=== PATIENT | female | born 1955 | race Caucasian/White ===

== ENCOUNTER 2018-04-18 08:52 | Inpatient (IN) | payer BC ==
[2018-04-11 12:01] VITALS: BMI 31.9
--- NOTE | 2018-04-18 07:24 | HP ---
Admitting History and Physical - Admission Chief Complaint: left knee osteoarthritis x years History of Present Illness: 62-year-old female presenting in regard to her left knee. Long-standing history of left knee osteoarthritis. Patient complains of pain, limited range of motion , difficulty ambulating, and difficulty with activities of daily living. Patient has failed conservative treatment measures including PO medications, activity modification, injections, and exercise programs. At this point, patient would like to proceed with surgical intervention-left total knee arthroplasty MAKOplasty. History Source: Patient - Past Medical History Cardiovascular: Yes: Hyperlipdemia Psych: Yes: Depression Musculoskeletal: Yes: Osteoarthritis - Past Surgical History Additional Past Surgical History: See written history and physical. - Smoking History Smoking history: Never smoked - Alcohol/Substance Use Hx Alcohol Use: Yes (RARELY) Home Medications - Allergies Allergies/Adverse Reactions: Allergies Allergy/AdvReac Type Severity Reaction Status Date / Time No Known Allergies Allergy Verified 04/07/18 10:58 - Home Medications Home Medications: Ambulatory Orders Bupropion HCl [Wellbutrin Xl -] 150 mg PO DAILY 04/07/18 Celecoxib [Celebrex] 200 mg PO DAILY 04/07/18 Fenofibrate Nanocrystallized [Fenofibrate] 145 mg PO DAILY 04/07/18 Sertraline HCl 100 mg PO BID 04/07/18 traZODone HCL [Trazodone HCl] 100 mg PO BID 04/07/18 Review of Systems - Review of Systems Musculoskeletal: reports: Crepitus (left knee), Decreased ROM (left knee), Joint Pain (left knee), Joint Swelling (left knee) Physical Examination Constitutional: Yes: Well Nourished, No Distress Eyes: Yes: Conjunctiva Clear HENT: Yes: Atraumatic, Normocephalic Neck: Yes: Supple Cardiovascular: Yes: Regular Rate and Rhythm Respiratory: Yes: Regular Gastrointestinal: Yes: Soft ...Rectal Exam: Yes: Deferred Musculoskeletal: Yes: Joint Stiffness (left knee), Joint Swelling (left knee) Assessment/Plan 62-year-old female presenting in regard to her left knee. Long-standing history of left knee osteoarthritis. Patient complains of pain, limited range of motion , difficulty ambulating, and difficulty with activities of daily living. Patient has failed conservative treatment measures including PO medications, activity modification, injections, and exercise programs. At this point, patient would like to proceed with surgical intervention-left total knee arthroplasty MAKOplasty. Pros, cons, risks, benefits, and alternatives of a left total knee arthroplasty were discussed with the patient at length. Patient confirms your understanding, and consent to proceed with a left total knee arthroplasty MAKOplasty.
[~2018-04-18 08:52] MED LIST: CEFAZOLIN 2 GM in DEXTROSE 5%-WATER - 50 ML IVPB ONE; CELECOXIB 200 MG CAPSULE PO ONE; GABAPENTIN 300 MG CAPSULE (FP) PO ONE; PANTOPRAZOLE 40 MG TABLET (FP) PO ONE; ROPIVICAINE 0.2%/MORPH PF/KETOROLAC - 51ML DISP.SYRINGE IA ONE; TRANEXAMIC ACID 1000 MG/10 ML VIAL IVPUSH ONE; oxyCODONE HCL 10 MG SUSTAINED ACTING TABLET PO ONE
[2018-04-18] MEDS ORDERED: MIDAZOLAM HCL 2 MG/2 ML SINGLE DOSE VIAL ONE ×2 (11:00→12:42)
[2018-04-18] MEDS ORDERED: BUPIVACAINE LIPOSOME/PF (EXPAREL) 266 MG/20 ML VIAL ONE ×2 (11:00→11:09)
[2018-04-18] MEDS ORDERED: ceFAZolin SODIUM 1 GM VIAL ONE ×2 (12:26→12:56)
[2018-04-18] MEDS ORDERED: TRANEXAMIC ACID 1000 MG/10 ML VIAL ONE ×2 (12:26→12:56)
[2018-04-18] MEDS ORDERED: VANCOMYCIN 1,000 MG VIAL (RESTRICTED TO ID ONLY) ONE (12:26)
[2018-04-18] MEDS ORDERED: ROPIVICAINE 0.2%/MORPH PF/KETOROLAC - 51ML DISP.SYRINGE IA ONE ×2 (12:29→13:41)
[2018-04-18] MEDS ORDERED: PROPOFOL 20 ML ONE ×5 (12:40→13:51)
[2018-04-18] MEDS ORDERED: SUCCINYLCHOLINE CHLORIDE 200 MG/10 ML VIAL ONE (12:40)
[2018-04-18] MEDS ORDERED: ONDANSETRON 4 MG/2 ML VIAL IVPUSH PRN (14:52)
[2018-04-18] MEDS ORDERED: oxyCODONE HCL 5 MG TABLET PO PRN (14:53)
[2018-04-18] MEDS ORDERED: KETOROLAC TROMETHAMINE 30 MG/1 ML VIAL IVPUSH ONE (16:18)
[2018-04-18] MEDS ORDERED: ACETAMINOPHEN 1000 MG/100 ML VIAL (NON FORMULARY) IVPB ONE ×2 (16:20→16:26)
[2018-04-18] MEDS ORDERED: KETOROLAC TROMETHAMINE 30 MG/1 ML VIAL ONE (16:24)
[2018-04-18] MEDS ORDERED: traMADol HCL 50 MG TABLET ONE (16:24)
[2018-04-18] MEDS ORDERED: ACETAMINOPHEN INJECTION 100 ML IVPB ONE (16:24)
[2018-04-18] MEDS ORDERED: traMADol HCL 50 MG TABLET PO ONE (16:25)
[2018-04-18] MEDS ORDERED: MAG HYDROX/AL HYDROX/SIMETH 30 ML UNIT-DOSE CUP PO PRN (16:47)
[2018-04-18] MEDS ORDERED: MAGNESIUM HYDROX 2400MG/30ML ORAL SUSPENSION 30 ML CUP PO PRN (16:47)
[2018-04-18] MEDS ORDERED: ONDANSETRON 4 MG/2 ML VIAL ONE (16:50)
[2018-04-18] MEDS ORDERED: ONDANSETRON 4 MG/2 ML VIAL IVPUSH ONE (16:50)
[2018-04-18] MEDS ORDERED: LACTATED RINGERS SOLUTION 1,000 ML IV SCH (17:00)
--- NOTE | 2018-04-18 17:31 | OP ---
Operative Note - Note: Operative Date: 04/18/18 Pre-Operative Diagnosis: Left knee OA Operation: Left QING TKA Post-Operative Diagnosis: Same as Pre-op Surgeon: Anthony Hernández Gold Nib Grinder: Vidhya Ya Anesthesia: Spinal Estimated Blood Loss (mls): 150
[2018-04-18] MEDS ORDERED: ceFAZolin SODIUM 1 GM VIAL IVPB ONE (17:32)
[2018-04-18] MEDS ORDERED: traZODone HCL 50 MG TABLET (FP) ONE (21:14)
[2018-04-18] MEDS: ASCORBIC ACID 500 MG TABLET (FP) PO SCH (21:42)
[2018-04-18] MEDS: GABAPENTIN 300 MG CAPSULE (FP) PO SCH (21:42)
[2018-04-18] MEDS: SERTRALINE HCL 50 MG TABLET (FP) PO SCH (21:43)
[2018-04-18] MEDS: CELECOXIB 200 MG CAPSULE PO SCH (21:43)
[2018-04-18] MEDS: traMADol HCL 50 MG TABLET PO SCH (21:44)
[2018-04-18] MEDS: ACETAMINOPHEN 325 MG TABLET (FP) PO SCH (21:45)
[2018-04-18] MEDS: KETOROLAC TROMETHAMINE 30 MG/1 ML VIAL IVPUSH SCH (21:45)
[2018-04-18] MEDS: traZODone HCL 100 MG TABLET (FP) PO SCH (21:47)
[2018-04-18] MEDS: SENNOSIDES/DOCUSATE COMBO (SENNA PLUS) TABLET (UD) PO SCH (21:48)
--- NOTE | 2018-04-18 21:58 | SPEC ---
DATE OF OPERATION: 04/18/2018 PREOPERATIVE DIAGNOSIS: Left knee osteoarthritis. POSTOPERATIVE DIAGNOSIS: Left knee osteoarthritis. PROCEDURE: Left total knee replacement with MAKOplasty robotic navigation. ATTENDING: David Osorio MD UNIT CLERK: KULWANT Hester ANESTHESIA: Spinal plus sedation. ESTIMATED BLOOD LOSS: 150 mL COMPLICATIONS: None. DISPOSITION: The patient was transferred to the PACU in stable condition. IMPLANTS USED: Raymond Triathlon size 4 femoral component, Charmaine Triathlon size 3 tibial component with 50-mm tibial stem, 16-mm total-stabilized polyethylene component, 32-mm patellar component. INDICATIONS: This is a 62-year-old female who presented to the office complaining of severe left knee pain. She was seen and examined by Dr. Osorio and diagnosed with severe left knee osteoarthritis. The patient was initially treated non-operatively with injections, medications, and physical therapy, but continued to have severe pain and ambulatory dysfunction. She was, therefore, indicated for a left total knee replacement. The risks, benefits, and alternatives to the procedure were explained to the patient in great detail, and she elected to proceed with the surgery. On the day of surgery, the patient was taken to the operating room and placed on the OR table. Spinal anesthesia was administered by the anesthesiologist. The patient was then positioned supine on the table and all bony prominences were padded. The knee was then prepped and draped in the usual sterile fashion and intravenous antibiotics were given for infection prophylaxis. A surgical time-out was then performed with the team, and the patients identity, procedure, side, availability of implants, and the administration of antibiotics was confirmed. With the knee flexed, a midline incision was made and carried down through the subcutaneous fat to the underlying retinaculum. A medial parapatellar arthrotomy was performed. This was followed by a subperiosteal dissection of the tissue off the proximal, medial tibia. A portion of fat pad was removed from under the patellar tendon, and a small portion of fat was excised off the distal supracondylar femur. Electrocautery and an Aquamantys bipolar sealing device were used to achieve hemostasis. The knee was then flexed further and the anterior horn of the lateral meniscus was released from the midline. Next, the anterior and posterior cruciate ligaments were transected. Grade 4 changes were noted diffusely throughout the knee. Femoral and tibial checkpoints were then placed in the appropriate location using a mallet. Two parallel bicortical self-drilling pins were placed in the tibial diaphysis after making stab incisions and bluntly dissecting down to bone. Two pins were then placed in the distal supracondylar femur. The Figure 1 navigation arrays were then attached to both the femoral and tibial pins and the lower extremity was then registered to the robotic navigation device using various joint movements, as well as inputting several dozen reference points. The knee was then taken through a full range of motion with a corrective force applied. Alignment in varus/valgus as well as flexion/extension and soft tissue balance was measured in various positions. The navigation device showed a numerical and graphic representation of the soft tissue balance. The components were repositioned virtually using the software until optimal soft tissue balance was achieved on screen. Once this was accomplished, the final plan was saved and sent to the robot. Self-retaining retractors were then placed at the joint line for exposure and protection of the collateral ligaments. The robot was brought into the sterile field and registered with the navigation device. The robotic arm with attached oscillating saw blade was then used to perform femoral and tibial bone cuts as per the saved software plan. The femoral box cut was made using the appropriately sized manual cutting guide. The knee was then irrigated. Trial components were placed and the knee was taken through a full range of motion to assess soft tissue balance and alignment. The range of motion was found to be excellent and the soft tissue balance was optimal and according to plan. The knee was then put into extension and the patella everted. The synovium around the patella was circumscribed with electrocautery. A caliper was used to measure the patellar thickness and a saw was then used to resect the patella at the chondro-osseous junction. The cut surface was then sized and drilled for the appropriate patellar button, with care taken to medialize it. A trial patella was then placed and the knee was again taken through a full range of motion. The knee was found to have both good balance and good patellar tracking. All of the components were removed except the tibial base plate. The appropriate instrumentation was used to drill and punch the proximal tibia for the keel of the final component. All bony surfaces were then cleaned with pulsatile lavage and dried. Bone cement was then prepared on the back table, and final components were cemented in place in the usual fashion. Extruded cement was removed. The polyethylene trial was placed, the knee was put into extension, and axial pressure was applied for compression while the cement hardened. The patellar button was similarly cemented into place. Once the cement had hardened, the knee was taken through a full range of motion to assess stability, balance, and patellar tracking. This was found to be optimal and the trial polyethylene was exchanged for the appropriately sized real implant. The wound was then thoroughly irrigated with normal saline. A 3-minute dilute Betadine lavage was performed. The knee was again irrigated using a pulsatile lavage device. A periarticular injection was used to locally infiltrate the capsular tissues surrounding the implant and prosthesis. Then No. 1 Polysorb and 0 VLoc 180 barbed sutures were used to close the arthrotomy. Then No. 1 Polysorb and 2-0 VLoc 90 sutures were used in the subcutaneous tissues. Then 4-0 undyed Vicryl and Dermabond skin adhesive was used to close the stab incisions made for the navigation pins. The skin was closed using both 3-0 VLoc 90 suture in a running subcuticular fashion and Dermabond skin adhesive. Once this was completed a sterile Aquacel dressing and compressive Mihir-wrap was applied. The patient was then awakened and taken to the PACU in stable condition. DAVID OSORIO M.D. [id number]
[2018-04-19] MEDS ORDERED: DEXAMETHASONE SOD PHOSPHATE 10 MG/1 ML VIAL IVPB ONE
[2018-04-19] MEDS: CEFAZOLIN 2 GM/D5W 2 GM/50 ML ML IVPB SCH ×2 (02:42→09:46)
[2018-04-19] MEDS: ACETAMINOPHEN 325 MG TABLET (FP) PO SCH ×5 (03:16→20:39)
[2018-04-19] MEDS: KETOROLAC TROMETHAMINE 30 MG/1 ML VIAL IVPUSH SCH ×3 (04:05→09:43)
[2018-04-19] MEDS: traMADol HCL 50 MG TABLET PO SCH ×5 (04:06→22:46)
[2018-04-19 08:08] LABS: HEMATOCRIT 32.9 % (32.4-45.2); HEMOGLOBIN 10.6 GM/dl (10.7-15.3); MCH 28.6 pg (25.7-33.7); MCHC 32.3 g/dl (32.0-36.0); MEAN CELL VOLUME 88.5 fl (80-96); MEAN PLT VOLUME 8.1 fl (7.5-11.1); PLATELET COUNT 237 K/MM3 (134-434); RBC 3.72 M/mm3 (3.60-5.2); WHITE BLOOD COUNT 11.1 K/mm3 (4.0-10.8)
[2018-04-19 08:18] LABS: ANION GAP 7 MMOL/L (8-16); BLOOD UREA NITROGEN 19 mg/dl (7-18); CALCIUM 8.2 mg/dl (8.4-10.2); CHLORIDE 100 mmol/L (98-107); CO2 25 mmol/L (22-28); CREATININE 0.9 mg/dl (0.6-1.3); GLUCOSE,RANDOM 151 mg/dl (74-106); POTASSIUM 4.4 mmol/L (3.5-5.1); SODIUM 132 mmol/L (136-145)
[2018-04-19] MEDS: ASPIRIN 325 MG TABLET PO SCH (08:30)
[2018-04-19] MEDS: LACTATED RINGERS SOLUTION 1,000 ML IV SCH ×2 (08:30→16:35)
[2018-04-19] MEDS ORDERED: traZODone HCL 50 MG TABLET (FP) ONE ×2 (09:32→21:24)
[2018-04-19] MEDS: GABAPENTIN 300 MG CAPSULE (FP) PO SCH ×2 (09:40→21:51)
[2018-04-19] MEDS: traZODone HCL 100 MG TABLET (FP) PO SCH ×2 (09:40→21:51)
[2018-04-19] MEDS: SENNOSIDES/DOCUSATE COMBO (SENNA PLUS) TABLET (UD) PO SCH ×2 (09:40→21:51)
[2018-04-19] MEDS: CELECOXIB 200 MG CAPSULE PO SCH ×2 (09:40→21:51)
[2018-04-19] MEDS: MULTIVITAMINS (DAILY MVI) TABLET (FP) PO SCH (09:41)
[2018-04-19] MEDS: ASCORBIC ACID 500 MG TABLET (FP) PO SCH ×2 (09:41→21:51)
[2018-04-19] MEDS: FENOFIBRIC ACID 135 MG CAP PO SCH (09:42)
[2018-04-19] MEDS: SERTRALINE HCL 50 MG TABLET (FP) PO SCH ×2 (09:42→21:51)
--- NOTE | 2018-04-19 10:38 | PN ---
Progress Note, Physician Chief Complaint: s/p left total knee replacement under spinal anesthesia History of Present Illness: post op day one with peripheral nerve block for post op pain control - Current Medication List Current Medications: Active Medications Acetaminophen (Tylenol -) 650 mg PO Q6H [facility] Stop: 04/21/18 14:59 Last Admin: 04/19/18 09:39 Dose: 650 mg Al Hydroxide/Mg Hydroxide (Mylanta Oral Suspension -) 30 ml PO Q4H PRN PRN Reason: DYSPEPSIA Ascorbic Acid (Vitamin C -) 500 mg PO BID [facility] Last Admin: 04/19/18 09:41 Dose: 500 mg Aspirin (Asa -) 325 mg PO DAILY@0800 [facility] Last Admin: 04/19/18 08:30 Dose: 325 mg Bupropion HCl (Wellbutrin Xl -) 150 mg PO DAILY [facility] Last Admin: 04/19/18 09:41 Dose: 150 mg Celecoxib (Celebrex -) 200 mg PO BID [facility] Last Admin: 04/19/18 09:40 Dose: 200 mg Fenofibric Acid (Trilipix -) 135 mg PO DAILY [facility] Last Admin: 04/19/18 09:42 Dose: 135 mg Gabapentin (Neurontin -) 300 mg PO BID [facility] Stop: 04/21/18 21:59 Last Admin: 04/19/18 09:40 Dose: 300 mg Lactated Ringer's (Lactated Ringers Solution) 1,000 mls @ 125 mls/hr IV ASDIR [facility] Last Admin: 04/19/18 08:30 Dose: Not Given Magnesium Hydroxide (Milk Of Magnesia -) 30 ml PO PRN PRN PRN Reason: CONSTIPATION Multivitamins/Minerals/Vitamin C (Tab-A-Vit -) 1 tab PO DAILY [facility] Last Admin: 04/19/18 09:41 Dose: 1 tab Ondansetron HCl (Zofran Injection) 4 mg IVPUSH Q6H PRN PRN Reason: NAUSEA AND/OR VOMITING Oxycodone HCl (Roxicodone -) 5 mg PO Q3H PRN PRN Reason: PAIN LEVEL 1-5 Last Admin: 04/19/18 06:22 Dose: 5 mg Oxycodone HCl (Roxicodone -) 10 mg PO Q3H PRN PRN Reason: PAIN LEVEL 6-10 Senna/Docusate Sodium (Pericolace -) 1 tablet PO BID [facility] Last Admin: 04/19/18 09:40 Dose: 1 tablet Sertraline HCl (Zoloft -) 100 mg PO BID [facility] Last Admin: 04/19/18 09:42 Dose: 100 mg Tramadol HCl (Ultram -) 50 mg PO Q6H [facility] Last Admin: 04/19/18 09:45 Dose: 50 mg Trazodone HCl (Desyrel -) 100 mg PO BID [facility] Last Admin: 04/19/18 09:40 Dose: Not Given - Objective Vital Signs: Vital Signs Temperature 98.9 F 04/19/18 09:57 Pulse Rate 89 04/19/18 09:57 Respiratory Rate 18 04/19/18 09:57 Blood Pressure 115/56 L 04/19/18 09:57 O2 Sat by Pulse Oximetry (%) 96 04/19/18 09:57 Constitutional: Yes: Well Nourished Cardiovascular: Yes: WNL Respiratory: Yes: WNL Gastrointestinal: Yes: WNL Labs: CBC, BMP 04/19/18 07:25 04/19/18 07:25 Assessment/Plan No anesthetic complications or complaints, pain well controlled. dept of anesthesia will sign off care at this time
[2018-04-19] MEDS: oxyCODONE HCL 5 MG TABLET PO PRN ×3 (13:45→23:18)
--- NOTE | 2018-04-19 23:34 | PN ---
Progress Note (short form) - Note Progress Note: Pt seen and examined. Doing well. AVSS Selected Entries 04/19/18 14:00 Temperature 98.4 F Pulse Rate 84 Respiratory 18 Rate Blood Pressure 121/51 L O2 Sat by Pulse 96 Oximetry (%) Laboratory Tests 04/19/18 04/19/18 07:25 07:25 WBC 11.1 H Hgb 10.6 L Hct 32.9 Plt Count 237 Sodium 132 L Potassium 4.4 Chloride 100 Carbon Dioxide 25 Anion Gap 7 L BUN 19 H Creatinine 0.9 Creat Clearance w eGFR > 60 Random Glucose 151 H Calcium 8.2 L Gen: NAD LLE: c/d/i, NVID A/P POD#1 s/p L TKA PT/OOB D/C home in AM after PT
--- NOTE | 2018-04-20 00:52 | DS ---
Physical Examination Vital Signs: Vital Signs Temperature 98.4 F 04/19/18 14:00 Pulse Rate 84 04/19/18 14:00 Respiratory Rate 18 04/19/18 20:13 Blood Pressure 121/51 L 04/19/18 14:00 O2 Sat by Pulse Oximetry (%) 96 04/19/18 20:13 Labs: CBC, BMP 04/19/18 07:25 04/19/18 07:25 Discharge Summary Reason For Visit: OSTEOARTHRITIS LEFT KNEE Current Active Problems Osteoarthritis of left knee (Acute) Procedures: Principal: left QING TKA Hospital Course: Admitted for elective surgery. Procedure performed without complications. Pt received postoperative antibiotic prophylaxis and DVT ppx. Ambulated with physical therapy. Stable for discharge home with outpatient followup. Condition: Stable - Instructions Diet, Activity, Other Instructions: Dr. Hernández - Knee Replacement Instructions Keep the Aquacel dressing on until removed by Dr. Hernández in 10-14 days - it is antibacterial and waterproof and you can shower with it on. Call the office for a follow-up appointment with Dr. Hernández in 10-14 days. [phone] Take one Aspirin 325mg daily for 6 weeks to prevent blood clots in your legs. Take one Pantoprazole 40mg daily for 6 weeks to protect against heartburn and ulcers. Take Cephalexin (antibiotic) 3x/day for 10 days to help prevent skin infection. Take Celebrex 200mg twice daily for 30 days to reduce swelling and inflammation. Take a multivitamin, stool softener, and extra Vitamin C supplement daily. For pain: *Mild pain (1-3/10): Take 1 Tramadol tablet every 4 hours as needed. Moderate pain (4-6/10): Take 1 Tramadol tablet and 1 Percocet tablet every 4 hours as needed. Severe pain (7-10/10): Take 1 Tramadol tablet and 2 Percocet tablets every 4 hours as needed. Activity: You can put as much weight on the operative leg as you want. Right after you get home, there will be a physical therapist coming to your house to help you walk around and bend/straighten your knee. After your follow-up appointment, you will be sent for more intensive outpatient physical therapy which will include machines and equipment that the home therapist cannot bring to your house. Always use a walker or cane for balance and to prevent falls. Expect to see swelling/bruising from the operative site all the way down to your toes. Wear the compression stocking on the operative side during the day to minimize how much swelling there is in your foot/ankle. Don't wear the stocking at night. You don't have to wear a stocking on the other side. Disposition: [facility]/HOME HEALTH CARE - Home Medications Comprehensive Discharge Medication List: Ambulatory Orders Bupropion HCl [Wellbutrin Xl -] 150 mg PO DAILY 04/07/18 Fenofibrate Nanocrystallized [Fenofibrate] 145 mg PO DAILY 04/07/18 Sertraline HCl 100 mg PO BID 04/07/18 traZODone HCL [Trazodone HCl] 100 mg PO BID 04/07/18 Ascorbic Acid [Vitamin C -] 500 mg PO BID tablet 04/20/18 Aspirin [ASA -] 325 mg PO DAILY@0800 tablet 04/20/18 Celecoxib [CeleBREX -] 200 mg PO BID #60 capsule 04/20/18 Cephalexin Monohydrate [Keflex -] 500 mg PO TID #30 capsule 04/20/18 Multivitamins [Multivit ([facility] Formulary)] 1 tab PO DAILY tab 04/20/18 Oxycodone HCl 15 mg PO Q4H PRN #90 tablet MDD 6 04/20/18 Oxycodone HCl/Acetaminophen [Percocet 5-325 mg Tablet] 1 - 2 tab PO Q4H PRN #60 tablet MDD 10 04/20/18 Pantoprazole Sodium [Protonix -] 40 mg PO DAILY #40 tablet.ec 04/20/18 Sennosides/Docusate Sodium [Pericolace -] 1 tablet PO BID tablet 04/20/18 traMADol HCL [Ultram -] 50 mg PO Q4H PRN #42 tablet MDD 6 04/20/18
[2018-04-20] MEDS: ACETAMINOPHEN 325 MG TABLET (FP) PO SCH ×2 (03:32→09:21)
[2018-04-20] MEDS: traMADol HCL 50 MG TABLET PO SCH ×2 (03:33→11:00)
[2018-04-20 06:05] VITALS: TEMP 97.8
[2018-04-20] MEDS: oxyCODONE HCL 5 MG TABLET PO PRN ×2 (06:49→09:24)
[2018-04-20] MEDS: ASPIRIN 325 MG TABLET PO SCH (08:00)
[2018-04-20 08:13] LABS: HEMATOCRIT 28.4 % (32.4-45.2); HEMOGLOBIN 9.3 GM/dl (10.7-15.3); MCH 28.9 pg (25.7-33.7); MCHC 32.7 g/dl (32.0-36.0); MEAN CELL VOLUME 88.3 fl (80-96); MEAN PLT VOLUME 8.2 fl (7.5-11.1); PLATELET COUNT 169 K/MM3 (134-434); RBC 3.22 M/mm3 (3.60-5.2); RDW 12.3 % (11.6-15.6); WHITE BLOOD COUNT 7.5 K/mm3 (4.0-10.8)
[2018-04-20 08:24] LABS: ANION GAP 7 MMOL/L (8-16); BLOOD UREA NITROGEN 21 mg/dl (7-18); CALCIUM 8.2 mg/dl (8.4-10.2); CHLORIDE 103 mmol/L (98-107); CO2 27 mmol/L (22-28); CREATININE 0.9 mg/dl (0.6-1.3); GLUCOSE,RANDOM 142 mg/dl (74-106); POTASSIUM 4.1 mmol/L (3.5-5.1); SODIUM 137 mmol/L (136-145)
[2018-04-20 09:20] VITALS: BP 134/71; PULSE 83
[2018-04-20] MEDS: GABAPENTIN 300 MG CAPSULE (FP) PO SCH (09:21)
[2018-04-20] MEDS: traZODone HCL 100 MG TABLET (FP) PO SCH (09:22)
[2018-04-20] MEDS: MULTIVITAMINS (DAILY MVI) TABLET (FP) PO SCH (09:22)
[2018-04-20] MEDS: FENOFIBRIC ACID 135 MG CAP PO SCH (09:22)
[2018-04-20] MEDS: SENNOSIDES/DOCUSATE COMBO (SENNA PLUS) TABLET (UD) PO SCH (09:22)
[2018-04-20] MEDS: ASCORBIC ACID 500 MG TABLET (FP) PO SCH (09:23)
[2018-04-20] MEDS: SERTRALINE HCL 50 MG TABLET (FP) PO SCH (09:23)
[2018-04-20] MEDS: CELECOXIB 200 MG CAPSULE PO SCH (09:23)
--- NOTE | 2018-04-21 11:15 | PATH ---
Surgical Pathology Report Patient Name: MARIANA GARCIA Med. Rec. #: [id number] /Age/Gender: 1955 (Age: 62) / F Account: [id number] Location: [facility] MED-SURG Taken: 04/18/2018 Received: 04/18/2018 Reported: 04/21/2018 Physicians: Anthony Hernández M.D. Specimen(s) Received LEFT KNEE BONE Clinical History Osteoarthritis left knee Final Diagnosis BONE, KNEE, LEFT, TOTAL KNEE REPLACEMENT MAKOPLASTY: BONE WITH DEGENERATIVE JOINT DISEASE, DENSE FIBROCONNECTIVE,FIBROADIPOSE TISSUE, AND REACTIVE SYNOVIUM. Electronically Signed Elaine Biggs M.D. Gross Description Received in formalin labeled "left knee bone," is a 13.0 x 10.0 x 2.2 cm aggregate of multiple portions of bone and soft tissue. The tibial plateau measures 7.0 x 5.3 x 1.4 cm. There is a 0.7 cm greatest dimension area of eburnation present. The remaining articular surfaces are delgado-brown and diffusely granular. The underlying trabecular bone is yellow and hard. Mushroom Grower sections are submitted in one cassette, following decalcification. /04/20/201804/20/2018
== END 2018-04-20 12:00 | disposition home health service (06) | DRG 470 ==
LOC: FM/S 08:52
PROVIDERS: ADMIT Student in an Organized Health Care Education/Training Program; ATTEND Student in an Organized Health Care Education/Training Program
PROC: 8E0Y0CZ Robotic Assisted Procedure of Lower Extremity, Open Approach (ICD-10-PCS; 2018-04-18)
PROC: 0SRD0J9 Replacement of Left Knee Joint with Synthetic Substitute, Cemented, Open Approach (ICD-10-PCS; principal; 2018-04-18 13:23)
DX: M17.12 Unilateral primary osteoarthritis, left knee (principal); E78.5 Hyperlipidemia, unspecified; F32.9 Major depressive disorder, single episode, unspecified
CPT/HCPCS: 36415; 73560-TC-LT-FY; 80048; 85027; 88305-TC; 88311-TC; 94760; 97116-GP; 97162-GP; J0131; J1100

== ENCOUNTER 2022-05-08 06:08 | Inpatient (IN) | payer BC ==
[2022-05-05 08:43] VITALS: BMI 31.5
[2022-05-08] MEDS ORDERED: VANCOMYCIN 1,000 MG VIAL (RESTRICTED TO ID ONLY) ONE (06:41)
[2022-05-08] MEDS ORDERED: ePHEDrine SULFATE 50 MG/1 ML AMPULE ONE (06:44)
[2022-05-08] MEDS ORDERED: PROPOFOL 20 ML ONE (06:45)
[2022-05-08] MEDS ORDERED: SUCCINYLCHOLINE CHLORIDE 200 MG/10 ML SYRINGE ONE (06:45)
[2022-05-08] MEDS ORDERED: BUPIVACAINE LIPOSOME/PF (EXPAREL) 266 MG/20 ML VIAL ONE (06:46)
[2022-05-08] MEDS ORDERED: MIDAZOLAM HCL 2 MG/2 ML SINGLE DOSE VIAL ONE ×2 (06:46→07:47)
[2022-05-08] MEDS ORDERED: BUPIVACAINE HCL/PF 0.5% (5MG/ML) 10 ML VIAL ONE (06:47)
[2022-05-08] MEDS ORDERED: SODIUM CHLORIDE 0.9% P/F 10 ML VIAL IJ ONE (06:47)
[2022-05-08] MEDS ORDERED: TRANEXAMIC ACID 1000 MG/10 ML VIAL ONE ×2 (07:42→09:15)
[2022-05-08] MEDS ORDERED: ceFAZolin SODIUM 1 GM VIAL ONE (07:42)
[2022-05-08] MEDS ORDERED: ONDANSETRON 4 MG/2 ML VIAL ONE (07:42)
[2022-05-08] MEDS ORDERED: KETOROLAC TROMETHAMINE 30 MG/1 ML VIAL ONE (07:42)
[2022-05-08] MEDS ORDERED: DEXAMETHASONE SOD PHOSPHATE 4 MG/1 ML VIAL ONE (07:42)
[2022-05-08] MEDS ORDERED: BUPIVICAINE 0.25%/MORPH PF/KETOROLAC - 51ML DISP.SYRINGE IA ONE ×2 (08:32→08:36)
[2022-05-08] MEDS ORDERED: PROPOFOL 40 ML ONE (08:48)
[2022-05-08] MEDS ORDERED: ONDANSETRON 4 MG/2 ML VIAL IVPUSH PRN ×2 (09:49→09:55)
[2022-05-08] MEDS ORDERED: PROMETHAZINE HCL 25 MG/1 ML VIAL IVPUSH PRN (09:55)
[2022-05-08] MEDS ORDERED: oxyCODONE HCL 5 MG TABLET PO PRN (09:55)
[2022-05-08] MEDS ORDERED: LACTATED RINGERS SOLUTION 1,000 ML IV SCH (10:00)
[2022-05-08] MEDS ORDERED: PATIENT'S OWN MEDICATION (NON-FORMULARY) (Fenofibrate Nanocrystallized [Fenofibrate] 145 M PO SCH (10:00)
[2022-05-08] MEDS: CEFAZOLIN SODIUM 2 GM in DEXTROSE 5%-WATER 100 ML IVPB SCH ×2 (15:22→23:12)
[2022-05-08] MEDS: PANTOPRAZOLE 40 MG TABLET PO SCH (15:23)
[2022-05-08] MEDS: MULTIVITAMINS (DAILY MVI) TABLET (FP) PO SCH (15:23)
[2022-05-08] MEDS: ACETAMINOPHEN 500 MG TABLET (FP) PO SCH ×2 (15:23→23:12)
[2022-05-08] MEDS: SENNOSIDES/DOCUSATE COMBO (SENNA PLUS) TABLET (UD) PO SCH ×2 (18:46→21:34)
[2022-05-08] MEDS: oxyCODONE HCL 5 MG TABLET PO PRN (20:40)
[2022-05-08] MEDS: SERTRALINE HCL 50 MG TABLET (FP) PO SCH (21:33)
[2022-05-08] MEDS: traZODone HCL 100 MG TABLET (FP) PO SCH (21:35)
[2022-05-09 03:29] VITALS: RESP 16
[2022-05-09] MEDS: oxyCODONE HCL 5 MG TABLET PO PRN ×2 (03:29→06:31)
[2022-05-09] MEDS ORDERED: ENOXAPARIN NA (PORCINE) 40 MG/0.4 ML DISP.SYRIN SQ SCH (06:30)
[2022-05-09] MEDS: ACETAMINOPHEN 500 MG TABLET (FP) PO SCH ×2 (06:31→12:09)
[2022-05-09 08:28] LABS: CALCIUM 8.3 mg/dl (8.5-10)
[2022-05-09] MEDS: MULTIVITAMINS (DAILY MVI) TABLET (FP) PO SCH (09:29)
[2022-05-09] MEDS: PANTOPRAZOLE 40 MG TABLET PO SCH (09:29)
[2022-05-09] MEDS: SERTRALINE HCL 50 MG TABLET (FP) PO SCH (09:29)
[2022-05-09] MEDS: SENNOSIDES/DOCUSATE COMBO (SENNA PLUS) TABLET (UD) PO SCH (09:29)
[2022-05-09 09:53] VITALS: BP 104/44; PULSE 68; TEMP 99
[2022-05-09] MEDS ORDERED: FENOFIBRIC ACID 135 MG CAP PO SCH (10:00)
[2022-05-09] MEDS: traZODone HCL 100 MG TABLET (FP) PO SCH (10:27)
[2022-05-09 12:03] LABS: HEMATOCRIT 27.4 % (32.4-45.2); HEMOGLOBIN 8.9 GM/dL (10.7-15.3); MCH 28.5 pg (25.7-33.7); MCHC 32.4 g/dl (32.0-36.0); MEAN CELL VOLUME 88.1 fl (80-96); MEAN PLT VOLUME 7.7 fl (7.5-11.1); PLATELET COUNT 181 10^3/uL (134-434); RBC 3.11 M/mm3 (3.60-5.2); RDW 13.8 % (11.6-15.6); WHITE BLOOD COUNT 6.6 K/mm3 (4.0-10.0)
== END 2022-05-09 13:00 | disposition home or self-care (01) | DRG 470 ==
LOC: FM/S 06:08
PROVIDERS: ADMIT Orthopaedic Surgery; ATTEND Orthopaedic Surgery
PROC: 8E0Y0CZ Robotic Assisted Procedure of Lower Extremity, Open Approach (ICD-10-PCS; 2022-05-08)
PROC: 0SRC0J9 Replacement of Right Knee Joint with Synthetic Substitute, Cemented, Open Approach (ICD-10-PCS; principal; 2022-05-08 07:59)
DX: M17.11 Unilateral primary osteoarthritis, right knee (principal)
CPT/HCPCS: 36415; 73560-TC-RT-FY; 80048; 85027; 88305-TC; 88311-TC; 94760; 97010-GP; 97116-GP; 97162-GP; C1713; C1776; C1889

== ENCOUNTER 2022-12-02 14:14 | Emergency (ER) | payer BC, OTHER ==
[2022-12-02] MEDS ORDERED: SODIUM CHLORIDE 0.9% 500 ML INFUS.BAG IV ONE (14:32)
[2022-12-02 14:37] VITALS: BP 156/66; PULSE 72; RESP 16; TEMP 98; BMI 31.8
[2022-12-02] MEDS ORDERED: ACETAMINOPHEN 1000 MG/100 ML BAG IVPB ONE (14:42)
[2022-12-02] MEDS ORDERED: ACETAMINOPHEN INJECTION 100 ML IVPB ONE (14:50)
[2022-12-02 15:06] LABS: HEMATOCRIT 34.4 % (32.4-45.2); HEMOGLOBIN 11.5 G/dL (10.7-15.3); MCH 29.1 pg (25.7-33.7); MCHC 33.4 g/dl (32.0-36.0); MEAN PLT VOLUME 7.4 fl (7.5-11.1); PLATELET COUNT 227.3 10^3/uL (134-434); RBC 3.95 10^6/uL (3.60-5.2); RDW 14.2 % (11.6-15.6); WHITE BLOOD COUNT 6.3 10^3/uL (4.0-10.8)
[2022-12-02 15:10] LABS: PLATELET ESTIMATE ADEQUATE
[2022-12-02 15:39] LABS: ALBUMIN 4.2 g/dl (3.4-5.0); BLOOD UREA NITROGEN 27.9 mg/dl (7-18); CALCIUM 9.2 mg/dl (8.5-10.1); CREATININE 0.9 mg/dl (0.6-1.3); PHOSPHOROUS 4.5 (2.5-4.9); POTASSIUM 3.9 mmol/L (3.5-5.1); SGOT/AST 14.6 U/L (15-37); SGPT/ALT 12.4 U/L (7-52); TOT PROT 6.5 g/dl (6.4-8.2)
[2022-12-02 16:20] LABS: BILIRUBIN,TOTAL 0.2 mg/dL (0.2-1)
== END 2022-12-02 17:48 | disposition home or self-care (01) ==
LOC: FER 14:14
PROC: 3E033NZ Introduction of Analgesics, Hypnotics, Sedatives into Peripheral Vein, Percutaneous Approach (ICD-10-PCS; principal; 2022-12-02)
DX: R10.32 Left lower quadrant pain (principal); K80.20 Calculus of gallbladder without cholecystitis without obstruction; R30.0 Dysuria
CPT/HCPCS: 36415; 74177-TC; 80053; 81003; 83690; 84100; 84484; 85027; 87086; 99285-25; Q9967